=== PATIENT | female | born 1935 | race Caucasian/White ===

== ENCOUNTER → 2017-01-20 | Outpatient (CLI) | payer MEDICARE, BC ==
[2017-01-20 10:26] LABS: ABSOLUTE EOSINOPHILS # (AUTO) 0.1 10^3/uL (0.0-0.6); ABSOLUTE LYMPHOCYTES (AUTO) 1.2 10^3/uL (0.5-4.7); ABSOLUTE MONOCYTES (AUTO) 0.4 10^3/uL (0.1-1.4); ABSOLUTE NEUT (AUTO) 3.8 10^3/uL (1.7-8.2); BASOPHILS % (AUTO) 0.6 % (0-2); HEMATOCRIT 36.1 % (36.0-47.0); HGB HCT DIFFERENCE -0.1; LYMPHOCYTES % (AUTO) 21.5 % (13-45); MEAN CORPUSCULAR HEMOGLOBIN 30.2 pg (27.0-33.4); MEAN CORPUSCULAR HGB CONC 33.3 g/dL (32.0-36.0); MEAN CORPUSCULAR VOLUME 91 fl (80-97); MONOCYTES % (AUTO) 6.6 % (3-13); RED BLOOD COUNT 3.99 10^6/uL (3.72-5.28); RED CELL DISTRIBUTION WIDTH 14.8 % (11.5-14.0); SEGMENTED NEUTROPHILS % (AUTO) 69.3 % (42-78); WHITE BLOOD COUNT 5.4 10^3/uL (4.0-10.5)
--- NOTE | 2017-01-20 11:16 | RADIOLOGY REPORT (SQ) ---
EXAM DESCRIPTION: CHEST PA/LATERAL COMPLETED DATE/TIME: 01/20/2017 9:59 am REASON FOR STUDY: ACUTE BRONCHITIS, UNSPECIFIED COMPARISON: Chest films 07/16/2013, 07/18/2013, 09/16/2013, 02/04/2015 EXAM PARAMETERS: NUMBER OF VIEWS: two views TECHNIQUE: Digital Frontal and Lateral radiographic views of the chest acquired. RADIATION DOSE: NA LIMITATIONS: none FINDINGS: LUNGS AND PLEURA: No opacities, masses or pneumothorax. No pleural effusion. MEDIASTINUM AND HILAR STRUCTURES: No masses or contour abnormalities. HEART AND VASCULAR STRUCTURES: Stable marked cardiomegaly BONES: Osteoporotic. No thoracic compression HARDWARE: Left-sided dual lead pacemaker OTHER: No other significant finding. IMPRESSION: Stable cardiomegaly. No acute infiltrate TECHNICAL DOCUMENTATION: JOB ID: [id number] [employer]- All Rights Reserved
== END ==
LOC: OD 09:25
PROVIDERS: ATTEND Internal Medicine
DX: J20.9 Acute bronchitis, unspecified (principal)
CPT/HCPCS: 36415; 71020; 85025

== ENCOUNTER 2017-07-28 18:26 | Inpatient (IN) | payer MEDICARE, BC ==
[2017-07-28] MEDS ORDERED: IPRATROPIUM BROMIDE 0.02% NEB 0.5 MG/2.5 ML AMPUL NEB ONE (19:16)
[2017-07-28] MEDS ORDERED: ALBUTEROL SULFATE 0.083% NEB 2.5 MG/3 ML AMPUL NEB ONE (19:16)
[2017-07-28] MEDS ORDERED: ALBUTEROL SULFATE 0.042% NEB (1.25 MG/3 ML) AMPUL NEB ONE (19:16)
--- NOTE | 2017-07-28 19:24 | ER Document Report ---
ED General - General Chief Complaint: Cough Stated Complaint: CONGESTED, BLOOD IN MUCUS Time Seen by Provider: 07/28/17 18:58 Mode of Arrival: Ambulatory Information source: Patient, Relative Notes: 82-year-old female with a history of congestive heart failure, atrial fibrillation, diabetes presents with complaint of cough and shortness of breath. Patient states cough started 6 days prior to arrival. She states initially it was dry, intermittent but has become worse and today she coughed up blood-tinged sputum.Upon arrival patient was found to be hypoxic. She denies any home O2 use. She denies any smoking history.She denies any recent hospitalizations. She does admit to chills, decreased p.o. intake, weakness. TRAVEL OUTSIDE OF THE [place] IN LAST 30 DAYS: No - HPI Onset: Last week Onset/Duration: Gradual Quality of pain: No pain Severity: None Pain Level: Denies Associated symptoms: Chills, Productive cough, Shortness of breath, Weakness. denies: Chest pain, Hurts to breath, Leg swelling Exacerbated by: Walking, Deep breathing Relieved by: Denies Similar symptoms previously: Yes - 1 year prior to arrival with diagnosis of pneumonia Recently seen / treated by doctor: No - Related Data Allergies/Adverse Reactions: pregabalin [From Lyrica] Allergy (Verified 07/28/17 18:30) Past Medical History - General Information source: Patient, Relative - Social History Smoking Status: Never Smoker Frequency of alcohol use: None Drug Abuse: None Lives with: Spouse/Significant other Family History: Reviewed & Not Pertinent Patient has suicidal ideation: No - Past Medical History Cardiac Medical History: Reports: Hx Congestive Heart Failure - DX SEVEN YEARS AGO, Hx Hypercholesterolemia - DX TEN YEARS AGO, Hx Hypertension - DX TEN YEARS AGO Pulmonary Medical History: Reports: Hx Bronchitis - A MONTH AGO, Hx COPD - DX TEN YEARS AGO, Hx Pneumonia - JULY 2013, Hx Sleep Apnea Denies: Hx Tuberculosis Endocrine Medical History: Reports: Hx Diabetes Mellitus Type 2 - DX TEN YEARS AGO Musculoskeltal Medical History: Reports Hx Arthritis Psychiatric Medical History: Reports: Hx Anxiety - DX MORE THAN 10 YEARS Denies: Hx Depression Past Surgical History: Reports: Hx Hysterectomy, Hx Pacemaker. Denies: Hx Adenoidectomy - Immunizations Hx Diphtheria, Pertussis, Tetanus Vaccination: Yes Hx Pneumococcal Vaccination: 05/16/09 Review of Systems - Review of Systems Constitutional: See HPI, Chills, Malaise EENT: Nose congestion, Sinus pressure Cardiovascular: Dyspnea. denies: Chest pain, Palpitations, Dizziness Respiratory: Cough, Short of breath, Sputum, Wheezing Gastrointestinal: No symptoms reported Genitourinary: Dysuria Physical Exam - Vital signs Vitals: Temp Pulse BP Pulse Ox 97.7 F 71 144/56 H 89 L 07/28/17 18:34 07/28/17 18:34 07/28/17 18:34 07/28/17 18:34 Interpretation: Hypoxic - General General appearance: Appears well, Alert In distress: None - HEENT Head: Normocephalic, Atraumatic Eyes: Normal Conjunctiva: Normal Extraocular movements intact: Yes Pupils: PERRL Mucous membranes: Dry Pharynx: Normal Neck: Normal. No: Carotid bruit - Respiratory Respiratory status: No respiratory distress Chest status: Nontender Breath sounds: Normal, Productive cough, Rhonchi, Wheezing Chest palpation: Normal - Cardiovascular Rhythm: Regular Heart sounds: Normal auscultation Murmur: No - Extremities General upper extremity: Normal inspection, Nontender, Normal color, Normal ROM , Normal temperature. No: Edema General lower extremity: Normal inspection, Nontender, Normal color, Normal ROM , Normal temperature, Normal weight bearing. No: Edema, Fallon's sign - Neurological Neuro grossly intact: Yes Cognition: Normal Orientation: AAOx4 [place] Coma Scale Eye Opening: Spontaneous [place]cia Coma Scale Verbal: Oriented [place] Coma Scale Motor: Obeys Commands [place] Coma Scale Total: 15 Speech: Normal Motor strength normal: LUE, RUE, LLE, RLE Sensory: Normal - Psychological Associated symptoms: Normal affect, Normal mood - Skin Skin Temperature: Warm Skin Moisture: Dry Skin Color: Normal Course - Re-evaluation Re-evalutation: 07/28/17 20:[address] Cruz. 82-year-old female with an extensive cardiac history including congestive heart failure and atrial fibrillation presents with complaint of 1 week of fever, weakness and cough as well as associated shortness of breath. Patient became concerned when she coughed up some blood-tinged sputum earlier today.She denies any chest pain, abdominal pain. She does admit to poor p.o. intake. Upon arrival vitals were reviewed and patient was found to be hypoxic at 89%. Patient does not appear toxic but she does appear mildly dehydrated. Lung exam is significant for diffuse wheezing and rhonchi. She has no accessory muscle use and is not in any respiratory distress but requires 2 L of oxygen to maintain a saturation of 92-93%. Patient has had no recent hospital admissions and was started on Rocephin and azithromycin in the emergency department. Lasix IV was also administered during her ED course. Curb 65 score is 2. Because of patient's extensive cardiac history and new oxygen requirement I believe admission is in the best interest of the patient. I did discuss admission with the family and the patient who is agreeable. Laboratory 07/28/17 07/28/17 07/28/17 19:12 19:12 19:12 WBC 6.2 RBC 4.31 Hgb 12.7 Hct 38.9 MCV 90 MCH 29.6 MCHC 32.8 RDW 15.3 H Plt Count 133 L Seg Neutrophils % 81.7 H Lymphocytes % 10.8 L Monocytes % 7.4 Eosinophils % 0.0 Basophils % 0.1 Absolute Neutrophils 5.1 Absolute Lymphocytes 0.7 Absolute Monocytes 0.5 Absolute Eosinophils 0.0 Absolute Basophils 0.0 PT 17.0 H INR 1.30 VBG pH VBG pCO2 VBG HCO3 VBG Base Excess Sodium 140.8 Potassium 4.2 Chloride 103 Carbon Dioxide 26 Anion Gap 12 BUN 24 H Creatinine 1.00 Est GFR ( Amer) > 60 Est GFR (Non-Af Amer) 53 L Glucose 140 H Lactic Acid Calcium 9.0 Total Bilirubin 0.6 Direct Bilirubin 0.5 H Neonat Total Bilirubin Not Reportable Neonat Direct Bilirubin Not Reportable Neonat Indirect Bili Not Reportable AST 75 H ALT 56 H Alkaline Phosphatase 77 Creatine Kinase 750 H CK-MB (CK-2) Troponin I NT-Pro-B Natriuret Pep Total Protein 6.6 Albumin 3.9 07/28/17 07/28/17 07/28/17 19:12 19:12 19:12 WBC RBC Hgb Hct MCV MCH MCHC RDW Plt Count Seg Neutrophils % Lymphocytes % Monocytes % Eosinophils % Basophils % Absolute Neutrophils Absolute Lymphocytes Absolute Monocytes Absolute Eosinophils Absolute Basophils PT INR VBG pH 7.38 VBG pCO2 48.0 VBG HCO3 27.7 VBG Base Excess 1.9 Sodium Potassium Chloride Carbon Dioxide Anion Gap BUN Creatinine Est GFR ( Amer) Est GFR (Non-Af Amer) Glucose Lactic Acid Cancelled Calcium Total Bilirubin Direct Bilirubin Neonat Total Bilirubin Neonat Direct Bilirubin Neonat Indirect Bili AST ALT Alkaline Phosphatase Creatine Kinase CK-MB (CK-2) 7.50 H Troponin I 0.049 NT-Pro-B Natriuret Pep 2500 H Total Protein Albumin 07/28/17 19:12 WBC RBC Hgb Hct MCV MCH MCHC RDW Plt Count Seg Neutrophils % Lymphocytes % Monocytes % Eosinophils % Basophils % Absolute Neutrophils Absolute Lymphocytes Absolute Monocytes Absolute Eosinophils Absolute Basophils PT INR VBG pH VBG pCO2 VBG HCO3 VBG Base Excess Sodium Potassium Chloride Carbon Dioxide Anion Gap BUN Creatinine Est GFR ( Amer) Est GFR (Non-Af Amer) Glucose Lactic Acid 2.2 H Calcium Total Bilirubin Direct Bilirubin Neonat Total Bilirubin Neonat Direct Bilirubin Neonat Indirect Bili AST ALT Alkaline Phosphatase Creatine Kinase CK-MB (CK-2) Troponin I NT-Pro-B Natriuret Pep Total Protein Albumin Chest X-Ray 07/28/17 19:16 IMPRESSION: CARDIAC ENLARGEMENT. VASCULAR CONGESTION WITH PATCHY MULTIFOCAL AIRSPACE DISEASE COULD REPRESENT ASYMMETRIC PULMONARY EDEMA OR SUPERIMPOSED PNEUMONIA. 07/28/17 22:19 - Vital Signs Vital signs: Temp Pulse Resp BP Pulse Ox 97.7 F 71 18 109/84 93 07/28/17 18:34 07/28/17 18:34 07/28/17 21:17 07/28/17 20:14 07/28/17 21:17 - Laboratory Result Diagrams: 07/28/17 19:12 07/28/17 19:12 Laboratory results interpreted by me: 07/28/17 07/28/17 07/28/17 19:12 19:12 19:12 RDW 15.3 H Plt Count 133 L Seg Neutrophils % 81.7 H Lymphocytes % 10.8 L PT 17.0 H BUN 24 H Est GFR (Non-Af Amer) 53 L Glucose 140 H Lactic Acid Magnesium Direct Bilirubin 0.5 H AST 75 H ALT 56 H Creatine Kinase 750 H CK-MB (CK-2) NT-Pro-B Natriuret Pep 07/28/17 07/28/17 07/28/17 19:12 19:12 19:12 RDW Plt Count Seg Neutrophils % Lymphocytes % PT BUN Est GFR (Non-Af Amer) Glucose Lactic Acid 2.2 H Magnesium 2.4 H Direct Bilirubin AST ALT Creatine Kinase CK-MB (CK-2) 7.50 H NT-Pro-B Natriuret Pep 2500 H
[2017-07-28 19:28] LABS: VENOUS BLOOD BASE EXCESS 1.9 mmol/L; VENOUS BLOOD HCO3 27.7 mmol/L (20-32); VENOUS BLOOD PH 7.38 (7.30-7.42)
[2017-07-28 19:32] LABS: ABSOLUTE LYMPHOCYTES (AUTO) 0.7 10^3/uL (0.5-4.7); ABSOLUTE MONOCYTES (AUTO) 0.5 10^3/uL (0.1-1.4); ABSOLUTE NEUT (AUTO) 5.1 10^3/uL (1.7-8.2); BASOPHILS % (AUTO) 0.1 % (0-2); HEMATOCRIT 38.9 % (36.0-47.0); HEMOGLOBIN 12.7 g/dL (12.0-15.5); LYMPHOCYTES % (AUTO) 10.8 % (13-45); MEAN CORPUSCULAR HEMOGLOBIN 29.6 pg (27.0-33.4); MEAN CORPUSCULAR HGB CONC 32.8 g/dL (32.0-36.0); MEAN CORPUSCULAR VOLUME 90 fl (80-97); MONOCYTES % (AUTO) 7.4 % (3-13); PLATELET COUNT 133 10^3/uL (150-450); RED BLOOD COUNT 4.31 10^6/uL (3.72-5.28); RED CELL DISTRIBUTION WIDTH 15.3 % (11.5-14.0); SEGMENTED NEUTROPHILS % (AUTO) 81.7 % (42-78); TOTAL CELLS COUNTED % (AUTO) 100 %; WHITE BLOOD COUNT 6.2 10^3/uL (4.0-10.5)
[2017-07-28 19:41] LABS: ALANINE AMINOTRANSFERASE 56 U/L (9-52); ALBUMIN 3.9 g/dL (3.5-5.0); ALKALINE PHOSPHATASE 77 U/L (38-126); ANION GAP 12 (5-19); ASPARTATE AMINO TRANSFERASE 75 U/L (14-36); BILIRUBIN,DIRECT 0.5 mg/dL (0.0-0.4); BILIRUBIN,TOTAL 0.6 mg/dL (0.2-1.3); BLOOD UREA NITROGEN 24 mg/dL (7-20); CARBON DIOXIDE 26 mmol/L (22-30); CHLORIDE 103 mmol/L (98-107); CREATINE KINASE 750 U/L (30-135); GLUCOSE 140 mg/dL (75-110); POTASSIUM 4.2 mmol/L (3.6-5.0); SODIUM 140.8 mmol/L (137-145); TOTAL PROTEIN 6.6 g/dL (6.3-8.2)
[2017-07-28] MEDS ORDERED: NORMAL SALINE 1000 ML 1,000 ML IV ONE (19:45)
[2017-07-28 19:53] LABS: CREATINE KINASE MB 7.5 ng/mL (<4.55)
[2017-07-28 19:54] LABS: TROPONIN I 0.049 ng/mL
[2017-07-28] MEDS ORDERED: CEFTRIAXONE INJ 1000 MG VIAL IV ONE (20:26)
[2017-07-28] MEDS ORDERED: AZITHROMYCIN 250 MG TABLET PO ONE (20:26)
--- NOTE | 2017-07-28 20:27 | RADIOLOGY REPORT (SQ) ---
EXAM DESCRIPTION: CHEST PA/LAT COMPLETED DATE/TIME: 07/28/2017 8:12 pm REASON FOR STUDY: cough hypoxic COMPARISON: 02/04/2015 NUMBER OF VIEWS: Two views. TECHNIQUE: Frontal and lateral radiographic views of the chest acquired. LIMITATIONS: None. FINDINGS: LUNGS AND PLEURA: Patchy multifocal airspace disease most notably involving the left upper lobe and right lower lobe. MEDIASTINUM AND HILAR STRUCTURES: No masses or contour abnormality. HEART AND VASCULAR STRUCTURES: Cardiac enlargement. Vascular congestion. BONES: No acute findings. HARDWARE: Stable peer OTHER: No other significant finding. IMPRESSION: CARDIAC ENLARGEMENT. VASCULAR CONGESTION WITH PATCHY MULTIFOCAL AIRSPACE DISEASE COULD REPRESENT ASYMMETRIC PULMONARY EDEMA OR SUPERIMPOSED PNEUMONIA. TECHNICAL DOCUMENTATION: JOB ID: [id number] [employer]- All Rights Reserved Reading location - IP/workstation name: [email or web address]
[2017-07-28] MEDS ORDERED: FUROSEMIDE INJ/PF 20 MG/2 ML SDV IV ONE (20:33)
[2017-07-28] MEDS ORDERED: ACETAMINOPHEN 325 MG TABLET PO PRN (20:50)
[2017-07-28] MEDS ORDERED: MAGNESIUM HYDROXIDE SUSP 30 ML UDCUP PO PRN (20:50)
[2017-07-28] MEDS ORDERED: DEXTROSE 50%-WATER 25 GM/50 ML DISP.SYRIN IV PRN ×2 (20:54)
[2017-07-28] MEDS ORDERED: GLUCAGON,HUMAN RECOMB 1 MG INJ IM PRN (20:54)
[2017-07-28] MEDS ORDERED: DEXTROSE 40% GEL 15 GM TUBE PO PRN ×2 (20:54)
[2017-07-28] MEDS ORDERED: HEPARIN SOD (PORCINE) 5,000 UNIT/ML 1 ML SYRINGE SUBCUT SCH (22:00)
[2017-07-28 22:19] LABS: APPEARANCE,URINE CLEAR; BILIRUBIN,URINE NEGATIVE (NEGATIVE); COLOR,URINE STRAW; GLUCOSE, URINE NEGATIVE (NEGATIVE); KETONES,URINE NEGATIVE (NEGATIVE); LEUKOCYTE ESTERASE,URINE NEGATIVE (NEGATIVE); NITRITE,URINE NEGATIVE (NEGATIVE); PROTEIN,URINE NEGATIVE (NEGATIVE); URINE SPECIFIC GRAVITY 1.006; UROBILINOGEN,URINE NEGATIVE mg/dL (<2.0)
[2017-07-28] MEDS: CARVEDILOL 6.25 MG TABLET PO SCH (22:59)
[2017-07-28] MEDS ORDERED: LACTULOSE SYRUP 20 GM/30 ML UDCUP PO ONE (23:52)
[2017-07-28] MEDS ORDERED: CHLORPHENIRAMINE MALEATE 4 MG TABLET PO ONE (23:52)
[2017-07-29 00:23] LABS: CREATINE KINASE MB 9.52 ng/mL (<4.55); TROPONIN I 0.045 ng/mL
[2017-07-29] MEDS ORDERED: FLUTICASONE NASAL SPRAY 50 MCG/SPRY 120 SPRAY/16 GM ONE (01:11)
[2017-07-29] MEDS ORDERED: CHLORPHENIRAMINE MALEATE 4 MG TABLET ONE (01:11)
[2017-07-29] MEDS: IPRATROPIUM BROMIDE 0.02% NEB 0.5 MG/2.5 ML AMPUL NEB SCH ×5 (01:35→21:21)
[2017-07-29] MEDS: LEVALBUTEROL HCL NEB 1.25 MG/3 ML AMPUL NEB SCH ×5 (01:36→21:21)
[2017-07-29] MEDS ORDERED: FLUTICASONE NASAL SPRAY 50 MCG/SPRY 120 SPRAY/16 GM NASL ONE (01:45)
[2017-07-29 05:58] LABS: ABSOLUTE LYMPHOCYTES (AUTO) 1.8 10^3/uL (0.5-4.7); ABSOLUTE MONOCYTES (AUTO) 0.8 10^3/uL (0.1-1.4); ABSOLUTE NEUT (AUTO) 6.8 10^3/uL (1.7-8.2); BASOPHILS % (AUTO) 0.3 % (0-2); EOSINOPHILS % (AUTO) 0.1 % (0-6); HEMATOCRIT 38.8 % (36.0-47.0); HEMOGLOBIN 12.8 g/dL (12.0-15.5); LYMPHOCYTES % (AUTO) 19.2 % (13-45); MEAN CORPUSCULAR HEMOGLOBIN 29.7 pg (27.0-33.4); MEAN CORPUSCULAR HGB CONC 32.9 g/dL (32.0-36.0); MEAN CORPUSCULAR VOLUME 90 fl (80-97); MONOCYTES % (AUTO) 8.8 % (3-13); PLATELET COUNT 147 10^3/uL (150-450); RED BLOOD COUNT 4.31 10^6/uL (3.72-5.28); SEGMENTED NEUTROPHILS % (AUTO) 71.6 % (42-78); TOTAL CELLS COUNTED % (AUTO) 100 %; WHITE BLOOD COUNT 9.5 10^3/uL (4.0-10.5)
[2017-07-29 06:13] LABS: ANION GAP 12 (5-19); BLOOD UREA NITROGEN 26 mg/dL (7-20); CARBON DIOXIDE 29 mmol/L (22-30); CHLORIDE 105 mmol/L (98-107); CHOLESTEROL 139.57 mg/dL (0-200); GLUCOSE 110 mg/dL (75-110); POTASSIUM 4.2 mmol/L (3.6-5.0); SODIUM 146.3 mmol/L (137-145); TRIGLYCERIDES 101 mg/dL (<150)
[2017-07-29 06:24] LABS: DIRECT LDL 67 mg/dL (<100)
--- NOTE | 2017-07-29 06:24 | PDOC H&P ---
History of Present Illness Admission Date/PCP: 07/28/17 21:07 Patient complains of: Shortness of breath and cough History of Present Illness: NYLA ALMEIDA is a 82 year old female with a past medical history of congestive heart failure, obstructive sleep apnea, status post pacemaker placement, COPD, coronary artery disease, dyslipidemia, diabetes and obesity. She presents with 1 week of subjective fever with productive cough of blood- tinged yellow sputum, rhinorrhea, hoarse voice and orthopnea. In the emergency room she is found to have hypoxia, lower extremity edema, BNP of 2700 and a chest x-ray with multilobar pneumonia versus atypical pulmonary edema. She started on empiric antibiotics, Lasix and referred to the hospitalist for admission. Patient denies chest pain nausea vomiting diaphoresis. Patient further denies recent antibiotics or change in medications. Past Medical History Cardiac Medical History: Reports: Congestive Heart Failure - DX SEVEN YEARS AGO , Hyperlipidema - DX TEN YEARS AGO, Hypertension - DX TEN YEARS AGO Pulmonary Medical History: Reports: Bronchitis - A MONTH AGO, Chronic Obstructive Pulmonary Disease (COPD) - DX TEN YEARS AGO, Pneumonia - JULY 2013 , Sleep Apnea Denies: Tuberculosis Endocrine Medical History: Reports: Diabetes Mellitus Type 2 - DX TEN YEARS AGO , Obesity Musculoskeltal Medical History: Reports: Arthritis Psychiatric Medical History: Denies: Depression Past Surgical History Past Surgical History: Reports: Hysterectomy, Pacemaker Denies: Adenoidectomy Social History Information Source: Patient, Relative Lives with: Spouse/Significant other Smoking Status: Never Smoker Frequency of Alcohol Use: None Hx Recreational Drug Use: No Drugs: None Hx Prescription Drug Abuse: No - Advance Directive Resuscitation Status: Full Code Family History Family History: Hypertension Parental Family History Reviewed: Yes Children Family History Reviewed: Yes Sibling(s) Family History Reviewed.: Yes Medication/Allergy Home Medications: Albuterol Sulfate [Albuterol Sulfate 2.5mg/3 mL] 2.5 mg NEB Q6 07/28/17 Alprazolam [Xanax 0.25 mg Tablet] 0.25 mg PO Q12HP PRN 07/28/17 Apixaban [Eliquis] 5 mg PO Q12 07/28/17 Carvedilol [Coreg 6.25 mg Tablet] 6.25 mg PO Q12 07/28/17 Fluticasone/Salmeterol [Advair 250-50 Diskus 14 Dose/Diskus] 1 puff IH Q12 07/28 Furosemide [Lasix 40 mg Tablet] 40 mg PO BID 07/28/17 Losartan Potassium [Cozaar 100 mg Tablet] 100 mg PO DAILY 07/28/17 Metformin HCl [Metformin HCl ER] 500 mg PO QHS 07/28/17 Umeclidinium Capron [Incruse Ellipta] 1 puff IH DAILY 07/28/17 Allergies/Adverse Reactions: pregabalin [From Lyrica] Allergy (Verified 07/28/17 18:30) Review of Systems Constitutional: PRESENT: as per HPI, chills, fatigue, fever(s), weakness, weight gain Eyes: ABSENT: visual disturbances Ears: ABSENT: hearing changes Nose, Mouth, and Throat: PRESENT: as per HPI Cardiovascular: PRESENT: as per HPI, dyspnea on exertion, edema, orthropnea Respiratory: PRESENT: as per HPI, cough, dyspnea, sputum. ABSENT: hemoptysis Gastrointestinal: PRESENT: constipation. ABSENT: abdominal pain, diarrhea, hematemesis, hematochezia, nausea, vomiting Genitourinary: ABSENT: dysuria, hematuria Musculoskeletal: ABSENT: joint swelling Integumentary: ABSENT: rash, wounds Neurological: ABSENT: abnormal gait, abnormal speech, confusion, dizziness, focal weakness, syncope Psychiatric: ABSENT: anxiety, depression, homidical ideation, suicidal ideation Endocrine: ABSENT: cold intolerance, heat intolerance, polydipsia, polyuria Hematologic/Lymphatic: ABSENT: easy bleeding, easy bruising Physical Exam Vital Signs: Temp Pulse Resp BP Pulse Ox 97.7 F 70 20 116/41 L 95 07/29/17 00:22 07/29/17 02:00 07/29/17 01:35 07/29/17 00:22 07/29/17 01:35 Intake & Output 07/27/17 07/28/17 07/29/17 11:59 11:59 11:59 Weight 109.9 kg General appearance: PRESENT: mild distress, morbidly obese Head exam: PRESENT: atraumatic, normocephalic Eye exam: PRESENT: conjunctiva pink, EOMI, PERRLA. ABSENT: scleral icterus Ear exam: PRESENT: normal external ear exam Mouth exam: PRESENT: moist, tongue midline Neck exam: ABSENT: carotid bruit, JVD, lymphadenopathy, thyromegaly Respiratory exam: PRESENT: accessory muscle use, crackles, prolonged expiratory phas, rales, retraction, tachypnea, wheezes. ABSENT: rhonchi Cardiovascular exam: PRESENT: RRR. ABSENT: diastolic murmur, rubs, systolic murmur Pulses: PRESENT: normal carotid pulses Vascular exam: PRESENT: normal capillary refill GI/Abdominal exam: PRESENT: normal bowel sounds, soft. ABSENT: distended, guarding, mass, organolmegaly, rebound, tenderness Rectal exam: PRESENT: deferred Extremities exam: PRESENT: full ROM, +1 edema. ABSENT: calf tenderness, clubbing, pedal edema Neurological exam: PRESENT: alert, awake, oriented to person, oriented to place , oriented to time, oriented to situation, CN II-XII grossly intact. ABSENT: motor sensory deficit Psychiatric exam: PRESENT: appropriate affect, normal mood. ABSENT: homicidal ideation, suicidal ideation Skin exam: PRESENT: dry, intact, warm. ABSENT: cyanosis, rash Results Laboratory Results: 07/29/17 05:47 07/28/17 07/28/17 07/29/17 21:54 23:49 05:47 WBC 9.5 RBC 4.31 Hgb 12.8 Hct 38.8 MCV 90 MCH 29.7 MCHC 32.9 RDW 15.0 H Plt Count 147 L Seg Neutrophils % 71.6 Lymphocytes % 19.2 Monocytes % 8.8 Eosinophils % 0.1 Basophils % 0.3 Absolute Neutrophils 6.8 Absolute Lymphocytes 1.8 Absolute Monocytes 0.8 Absolute Eosinophils 0.0 Absolute Basophils 0.0 Lactic Acid 1.3 Urine Color STRAW Urine Appearance CLEAR Urine pH 6.0 Ur Specific [place] 1.006 Urine Protein NEGATIVE Urine Glucose (UA) NEGATIVE Urine Ketones NEGATIVE Urine Blood SMALL H Urine Nitrite NEGATIVE Ur Leukocyte Esterase NEGATIVE Urine WBC (Auto) 0 Urine RBC (Auto) 0 07/28/17 07/28/17 23:49 23:49 Creatine Kinase 742 H CK-MB (CK-2) 9.52 H Troponin I 0.045 Impressions: Chest X-Ray 07/28/17 19:16 IMPRESSION: CARDIAC ENLARGEMENT. VASCULAR CONGESTION WITH PATCHY MULTIFOCAL AIRSPACE DISEASE COULD REPRESENT ASYMMETRIC PULMONARY EDEMA OR SUPERIMPOSED PNEUMONIA. Assessment & Plan - Diagnosis (1) Acute exacerbation of congestive heart failure Is this a current diagnosis for this admission?: Yes Plan: Telemetry floor, CHF care set, education gentle diuresis and BiPAP follow-up a.m. chemistry (2) Pneumonia Is this a current diagnosis for this admission?: Yes Plan: Likely trigger for CHF exacerbation, empiric antibiotic, Flonase, chlorpheniramine, Xopenex and Atrovent. Follow-up blood culture and CBC (3) COPD exacerbation Is this a current diagnosis for this admission?: Yes Plan: Flutter valve, Xopenex and Atrovent. (4) Diabetes Is this a current diagnosis for this admission?: Yes Plan: Home regiment with Humalog sliding scale coverage (5) Rhabdomyolysis Is this a current diagnosis for this admission?: Yes Plan: Secondary to sedentary state, avoid rapid diuresis follow-up total CK and chemistry - Time Time Spent: 50 to 70 Minutes - Inpatient Certification Medical Necessity: Need Close Monitoring Due to Risk of Patient Decompensation
[2017-07-29 06:25] LABS: CREATINE KINASE MB 9.17 ng/mL (<4.55); TROPONIN I 0.064 ng/mL
--- NOTE | 2017-07-29 08:07 | EKG REPORT ---
SEVERITY:- ABNORMAL ECG - VENTRICULAR-PACED COMPLEXES : Confirmed by: Fabrice Perry MD 29-Jul-2017 08:06:48
[2017-07-29] MEDS: APIXABAN 5 MG TABLET PO SCH ×2 (09:35→21:10)
[2017-07-29] MEDS: CARVEDILOL 6.25 MG TABLET PO SCH ×2 (09:35→21:10)
[2017-07-29] MEDS: DOCUSATE SODIUM 100 MG CAPSULE PO SCH (09:37)
[2017-07-29] MEDS: POTASSIUM CHLORIDE 10 MEQ TABLET.SA PO SCH (09:37)
[2017-07-29] MEDS: FLUTICASONE NASAL SPRAY 50 MCG/SPRY 120 SPRAY/16 GM NASL SCH ×2 (09:38→21:11)
[2017-07-29] MEDS ORDERED: LEVALBUTEROL HCL NEB 0.63 MG/3 ML AMPUL NEB PRN (09:41)
[2017-07-29] MEDS ORDERED: FUROSEMIDE INJ/PF 40 MG/4 ML SDV IV SCH (10:00)
[2017-07-29] MEDS: METHYLPREDNISOLONE INJ 40 MG/1 ML SDV IV SCH ×2 (11:44→18:42)
[2017-07-29 12:34] LABS: CREATINE KINASE MB 7.24 ng/mL (<4.55); TROPONIN I 0.053 ng/mL
--- NOTE | 2017-07-29 13:05 | EKG REPORT ---
SEVERITY:- ABNORMAL ECG - VENTRICULAR-PACED COMPLEXES FIRST DEGREE AV BLOCK : Confirmed by: Fabrice Perry MD 29-Jul-2017 13:05:11
[2017-07-29] MEDS ORDERED: CEFTRIAXONE 1 GM/D5W RTU 1 GM/50 ML RTUPB IV SCH (18:00)
[2017-07-29] MEDS: FUROSEMIDE INJ/PF 40 MG/4 ML SDV IV SCH ×2 (18:41→21:10)
[2017-07-29] MEDS: CEFTRIAXONE SODIUM 1,000 MG in NORMAL SALINE 100 ML IV SCH (18:42)
[2017-07-29] MEDS: AZITHROMYCIN 500 MG in DEXTROSE 5%-WATER 250 ML IV SCH (18:42)
--- NOTE | 2017-07-29 19:33 | XCELERA REPORT ---
[address] [address] Transthoracic Echocardiogram Report Name: NYLA ALMEIDA Age: 82 yrs Gender: Female : 1935 Patient Status: Inpatient Patient Location: [address] [place] [address] Study Date: 07/29/2017 09:15 AM Height: 67 in Weight: 249 lb BSA: 2.2 m2 Procedure: A complete two-dimensional transthoracic echocardiogram was performed (2D, M-mode, spectral and color flow Doppler). The study was technically difficult with many images being suboptimal in quality. Reason For Study: overload Ordering Physician: KATLYN CARRASCO Performed By: Becky Moon Interpretation Summary The study was technically difficult with many images being suboptimal in quality. Left ventricular systolic function is mildly reduced. The Ejection Fraction estimate is 45-50% Consider additional methods to assess LVEF such as MUGA scan, CTA heart, cardiac MRI, NICOLE, etc. if clinically indicated. There is mild to moderate concentric left ventricular hypertrophy. The left ventricle is grossly normal size. LV diastolic function could not be adequately assessed. Regional wall motion abnormalities cannot be excluded due to limited visualization. The left atrium is moderately dilated. The right atrium is mildly dilated. There is a mild amount of mitral regurgitation There is no mitral valve stenosis. No aortic regurgitation is present. There is no aortic valve stenosis There is a mild amount of tricuspid regurgitation There is mild to moderate pulmonary hypertension by echo Right ventricular systolic pressure is estimated to be elevated at 40- 50mmHg. The aortic root is not well visualized. The inferior vena cava appeared normal and decreased > 50% with respiration (RAP 5-10 mmHg) Minimal pericardial effusion. MMode/2D Measurements & Calculations RVDd: 3.6 cm LVIDd: 4.5 cm FS: 23.6 % Ao root diam: 2.5 cm IVSd: 1.4 cm LVIDs: 3.4 cm EDV(Teich): 92.1 ml LVPWd: 1.4 cm ESV(Teich): 48.5 ml Ao root area: 5.0 cm2 EF(Teich): 47.4 % Doppler Measurements & Calculations MV E max michele: MV dec slope: Ao V2 max: LV V1 max P.1 cm/sec 158.8 cm/sec 3.1 mmHg MV A max michele: 581.1 cm/sec2 Ao max PG: LV V1 max: 57.5 cm/sec MV dec time: 10.1 mmHg 88.6 cm/sec MV E/A: 2.3 0.22 sec PA V2 max: TR max michele: 93.7 cm/sec 298.1 cm/sec PA max P.5 mmHg TR max P.5 mmHg Left Ventricle The left ventricle is grossly normal size. There is mild to moderate concentric left ventricular hypertrophy. Left ventricular systolic function is mildly reduced. The Ejection Fraction estimate is 45-50%. Consider additional methods to assess LVEF such as MUGA scan, CTA heart, cardiac MRI, NICOLE, etc. if clinically indicated. LV diastolic function could not be adequately assessed. Regional wall motion abnormalities cannot be excluded due to limited visualization. Right Ventricle The right ventricle is mildly dilated. There is normal right ventricular wall thickness. The right ventricular systolic function is normal. Atria The right atrium is mildly dilated. The left atrium is moderately dilated. Interarterial septum not well visualized and not well dopplered. Cannot comment on ASD/PFO presence. Mitral Valve There is mild mitral leaflet calcification. There is mild to moderate mitral annular calcification. There is no mitral valve stenosis. There is a mild amount of mitral regurgitation. Aortic Valve The aortic valve is not well visualized secondary to technical limitations. There is no aortic valve stenosis. No aortic regurgitation is present. Tricuspid Valve The tricuspid valve is not well visualized, but is grossly normal. There is no tricuspid stenosis. There is a mild amount of tricuspid regurgitation. There is mild to moderate pulmonary hypertension by echo. Right ventricular systolic pressure is estimated to be elevated at 40-50mmHg. Pulmonic Valve The pulmonic valve is not well visualized. Great Vessels The aortic root is not well visualized. The inferior vena cava appeared normal and decreased > 50% with respiration (RAP 5-10 mmHg). Effusions Minimal pericardial effusion. : KATLYN CARRASCO > Dung Tejada
--- NOTE | 2017-07-29 22:42 | PDOC PROGRESS REPORT ---
Subjective Progress Note for:: 07/29/17 Subjective:: 82 year old female with a past medical history of congestive heart failure, atrial fibrillation, obstructive sleep apnea, status post pacemaker placement, COPD, coronary artery disease, dyslipidemia, diabetes and obesity. Patient described having fever, and a productive cough with yellow sputum. She was noted to have an elevated BNP, CXR with edema. She was started on antibiotics for an early PNA vs. Bronchitis. Started on Lasix for exacerbation of her CHF. She was wheezing on exam, IV steroids and neb treatments were given. Reason For Visit: HEART FAILURE, PNA Physical Exam Vital Signs: Temp Pulse Resp BP Pulse Ox 98.3 F 70 18 137/69 H 96 07/29/17 20:00 07/29/17 20:20 07/29/17 20:20 07/29/17 20:00 07/29/17 20:20 Intake & Output 07/28/17 07/29/17 07/30/17 06:59 06:59 06:59 Intake Total 0 620 Balance 0 620 Weight 109.9 kg General appearance: PRESENT: no acute distress. ABSENT: disheveled Head exam: PRESENT: atraumatic, normocephalic Eye exam: PRESENT: EOMI, PERRLA Ear exam: PRESENT: normal external ear exam Mouth exam: PRESENT: moist, neck supple Neck exam: ABSENT: tenderness, thyromegaly Respiratory exam: PRESENT: crackles, prolonged expiratory phas, wheezes. ABSENT : rhonchi Cardiovascular exam: PRESENT: RRR, +S1, +S2. ABSENT: diastolic murmur, systolic murmur Pulses: PRESENT: normal radial pulses, normal dorsalis pedis pul Vascular exam: PRESENT: normal capillary refill. ABSENT: pallor GI/Abdominal exam: PRESENT: normal bowel sounds, soft. ABSENT: mass, rigid Musculoskeletal exam: PRESENT: full ROM. ABSENT: normal inspection Neurological exam: PRESENT: alert, oriented to person, oriented to place, oriented to time, CN II-XII grossly intact Psychiatric exam: ABSENT: agitated, anxious, flat affect Focused psych exam: ABSENT: delusional, paranoid Skin exam: ABSENT: erythema, petechiae Results Laboratory Results: 07/29/17 05:47 07/29/17 05:47 07/28/17 07/29/17 07/29/17 23:49 05:47 05:47 WBC 9.5 RBC 4.31 Hgb 12.8 Hct 38.8 MCV 90 MCH 29.7 MCHC 32.9 RDW 15.0 H Plt Count 147 L Seg Neutrophils % 71.6 Lymphocytes % 19.2 Monocytes % 8.8 Eosinophils % 0.1 Basophils % 0.3 Absolute Neutrophils 6.8 Absolute Lymphocytes 1.8 Absolute Monocytes 0.8 Absolute Eosinophils 0.0 Absolute Basophils 0.0 Sodium 146.3 H Potassium 4.2 Chloride 105 Carbon Dioxide 29 Anion Gap 12 BUN 26 H Creatinine 0.98 Est GFR ( Amer) > 60 Est GFR (Non-Af Amer) 54 L Glucose 110 Lactic Acid 1.3 Calcium 9.0 Triglycerides 101 Cholesterol 139.57 LDL Cholesterol Direct 67 VLDL Cholesterol 20.0 HDL Cholesterol 55 07/28/17 07/28/17 07/29/17 23:49 23:49 05:47 Creatine Kinase 742 H 638 H CK-MB (CK-2) 9.52 H Troponin I 0.045 07/29/17 07/29/17 07/29/17 05:47 09:42 11:53 Creatine Kinase 535 H CK-MB (CK-2) 9.17 H Troponin I 0.064 0.052 07/29/17 11:53 Creatine Kinase CK-MB (CK-2) 7.24 H Troponin I 0.053 Impressions: Chest X-Ray 07/28/17 19:16 IMPRESSION: CARDIAC ENLARGEMENT. VASCULAR CONGESTION WITH PATCHY MULTIFOCAL AIRSPACE DISEASE COULD REPRESENT ASYMMETRIC PULMONARY EDEMA OR SUPERIMPOSED PNEUMONIA. Assessment & Plan - Plan Summary Plan Summary: 1. Acute on Chronic Systolic heart failure. TTE today shows: EF: 45-50% continue IV Lasix 40mg q8h, supportive O2 NC. BIPAP as needed. 2. Acute on Chronic Respiratory Failure with Hypoxia. on sheduled Xopenex/ipratropium. IV steroids, supplemental O2 BIPAP if needed. 3. Pneumonia vs. Bronchitis. Continue Ceftriaxone/Azithromycin continue Nebulized therapies 4. COPD exacerbation see #2 5. Atrial Fibrillation. continue coreg and Eliquis rate controled. 6. Diabetes Mellitus. continue SSI 7. Rhabdomyolysis. attempting gradual diuresis, monitor CK level
[2017-07-30] MEDS: LEVALBUTEROL HCL NEB 1.25 MG/3 ML AMPUL NEB SCH ×7 (00:04→23:53)
[2017-07-30] MEDS: IPRATROPIUM BROMIDE 0.02% NEB 0.5 MG/2.5 ML AMPUL NEB SCH ×7 (00:04→23:53)
[2017-07-30] MEDS: METHYLPREDNISOLONE INJ 40 MG/1 ML SDV IV SCH ×3 (01:51→17:18)
[2017-07-30] MEDS: FUROSEMIDE INJ/PF 40 MG/4 ML SDV IV SCH ×3 (05:14→23:25)
[2017-07-30 07:04] LABS: HEMATOCRIT 38.2 % (36.0-47.0); HEMOGLOBIN 12.8 g/dL (12.0-15.5); MEAN CORPUSCULAR HEMOGLOBIN 30.1 pg (27.0-33.4); MEAN CORPUSCULAR HGB CONC 33.5 g/dL (32.0-36.0); MEAN CORPUSCULAR VOLUME 90 fl (80-97); PLATELET COUNT 152 10^3/uL (150-450); RED BLOOD COUNT 4.25 10^6/uL (3.72-5.28); RED CELL DISTRIBUTION WIDTH 14.8 % (11.5-14.0); WHITE BLOOD COUNT 5.8 10^3/uL (4.0-10.5)
[2017-07-30 07:45] LABS: ALBUMIN 3.9 g/dL (3.5-5.0); ANION GAP 11 (5-19); BLOOD UREA NITROGEN 24 mg/dL (7-20); CALCIUM 8.7 mg/dL (8.4-10.2); CARBON DIOXIDE 34 mmol/L (22-30); CHLORIDE 100 mmol/L (98-107); CREATINE KINASE 279 U/L (30-135); GLUCOSE 148 mg/dL (75-110); PHOSPHORUS 4.7 mg/dL (2.5-4.5); POTASSIUM 4.2 mmol/L (3.6-5.0); SODIUM 144.9 mmol/L (137-145)
[2017-07-30] MEDS: DOCUSATE SODIUM 100 MG CAPSULE PO SCH (10:03)
[2017-07-30] MEDS: CARVEDILOL 6.25 MG TABLET PO SCH ×2 (10:03→23:25)
[2017-07-30] MEDS: POTASSIUM CHLORIDE 10 MEQ TABLET.SA PO SCH (10:03)
[2017-07-30] MEDS: FLUTICASONE NASAL SPRAY 50 MCG/SPRY 120 SPRAY/16 GM NASL SCH ×2 (10:04→23:26)
[2017-07-30] MEDS: APIXABAN 5 MG TABLET PO SCH ×2 (10:04→23:25)
[2017-07-30] MEDS: INSULIN LISPRO 100 UNIT/ML 3 ML VIAL SUBCUT PRN ×2 (12:27→17:18)
--- NOTE | 2017-07-30 13:54 | PROGRESS NOTE E ---
Progress Note NAME: NYLA ALMEIDA : 1935 AGE: 82Y DATE: ROOM: 531 SUBJECTIVE: The patient is an 82-year-old female who has a past medical history of COPD, congestive heart failure with ejection fraction of 30%. She was admitted with COPD exacerbation and congestive heart failure exacerbation. She was started on Lasix 40 mg IV every 8 hours, Solu-Medrol, and nebulizer and antibiotics. She was doing better today. OBJECTIVE: GENERAL: The patient is lying in bed, comfortable, not in distress. VITAL SIGNS: Temperature 97.3, heart rate 70, blood pressure is 128/89, saturation 96% on 2 L. HEENT: Normocephalic, atraumatic. Pupils are round and reactive to light and accommodation bilaterally. Extraocular movements intact. Ears: Tympanic membranes intact bilaterally. No discharge from the ears. No discharge from the nose. NECK: Supple. No increased JVD. No thyromegaly. No lymphadenopathy. CARDIOVASCULAR: Normal S1 and S2. Regular rate and rhythm. No murmur. No gallop. RESPIRATORY: Bilateral wheezing and crackles. ABDOMEN: Soft and nontender. MUSCULOSKELETAL: No edema. NEUROLOGIC: Awake, alert. SKIN: No rash. LABORATORY DATA: White blood count 5.8, hemoglobin 12. Creatinine is 0.9. ASSESSMENT: 1. Acute on chronic hypoxic respiratory failure secondary to COPD exacerbation and congestive heart failure, improved. 2. Acute on chronic systolic heart failure. EF is 45% to 50%, improved. 3. Pneumonia versus bronchitis. Continue antibiotics, nebulizers, and steroids for the patient. 4. Atrial fibrillation, rate controlled. 5. Diabetes. Continue sliding-scale. PLAN: Continue the Lasix 40 mg IV every 8 hours. Continue Solu-Medrol and continue Eliquis , and ceftriaxone . MEDICAL NECESSITY: Needs antibiotics and IV Lasix. DISPOSITION: Probably home in 2 days. DICTATING PHYSICIAN: PATRICIO ARRIOLA M.D. [id number] PHY#: [id number] ID: [id number] JOB#: [id number] ACCT: [id number] cc: > MTDD
[2017-07-30] MEDS: CEFTRIAXONE SODIUM 1,000 MG in NORMAL SALINE 100 ML IV SCH (17:18)
[2017-07-30] MEDS: AZITHROMYCIN 500 MG in DEXTROSE 5%-WATER 250 ML IV SCH (18:03)
[2017-07-30] MEDS: ALPRAZOLAM 0.25 MG TABLET PO PRN (19:41)
[2017-07-30] MEDS: MAG HYDROX/AL HYDROX/SIMETH SUSP 30 ML UDCUP PO PRN (22:37)
[2017-07-30] MEDS: GUAIFENESIN 600 MG TABLET.SA PO SCH (23:25)
[2017-07-31] MEDS: METHYLPREDNISOLONE INJ 40 MG/1 ML SDV IV SCH ×2 (01:57→11:18)
[2017-07-31] MEDS: LEVALBUTEROL HCL NEB 1.25 MG/3 ML AMPUL NEB SCH ×6 (04:20→23:58)
[2017-07-31] MEDS: IPRATROPIUM BROMIDE 0.02% NEB 0.5 MG/2.5 ML AMPUL NEB SCH ×6 (04:20→23:58)
[2017-07-31] MEDS: FUROSEMIDE INJ/PF 40 MG/4 ML SDV IV SCH (06:59)
[2017-07-31] MEDS: CARVEDILOL 6.25 MG TABLET PO SCH ×2 (11:18→21:06)
[2017-07-31] MEDS: DOCUSATE SODIUM 100 MG CAPSULE PO SCH (11:19)
[2017-07-31] MEDS: APIXABAN 5 MG TABLET PO SCH ×2 (11:19→21:06)
[2017-07-31] MEDS: POTASSIUM CHLORIDE 10 MEQ TABLET.SA PO SCH (11:19)
[2017-07-31] MEDS: GUAIFENESIN 600 MG TABLET.SA PO SCH ×2 (11:19→21:06)
[2017-07-31] MEDS: FLUTICASONE NASAL SPRAY 50 MCG/SPRY 120 SPRAY/16 GM NASL SCH ×2 (11:20→21:06)
--- NOTE | 2017-07-31 16:09 | PROGRESS NOTE E ---
Progress Note NAME: NYLA ALMEIDA : 1935 AGE: 82Y DATE: 07/31/2017 ROOM: 531 SUBJECTIVE: The patient is a pleasant 83-year-old female who had a past medical history of COPD, congestive heart failure, ejection fraction 30%. The patient was admitted with COPD exacerbation, congestive heart failure exacerbation. Started on Lasix 40 mg IV every 8 hours, as well as antibiotics, nebulizer and Solu-Medrol. She is doing better today. She desats when she walks, so was at minimum activity. The patient is not on any home oxygen. OBJECTIVE: Patient lying in bed, comfortable, not in distress. Temperature is afebrile. Heart rate is 70, saturation is 90% to 95% at rest. HEENT: Normocephalic, atraumatic. Pupils round, reactive to light and accommodation bilaterally. Extraocular movements intact. Neck supple. No JVD, no thyromegaly, no lymphadenopathy. Ears: Tympanic membranes intact bilaterally. No discharge from the ears. No discharge from the nose. Cardiovascular: Normal S1, S2. Irregular rate and rhythm. No murmur, no gallop. Respiratory: Lungs have bilateral crackles. No wheeze. Abdomen soft, nontender. Musculoskeletal: No edema. Neurological exam: Awake, alert. Skin: No rash. LABORATORY DATA: White blood count 5.8, hemoglobin 12.8, hematocrit 38. Creatinine 0.9, BUN 11. ASSESSMENT: 1. ACUTE HYPOXIC RESPIRATORY FAILURE, SECONDARY TO COPD AND CONGESTIVE HEART FAILURE. 2. ACUTE ON CHRONIC SYSTOLIC HEART FAILURE. EF of 45. Improved on Lasix 40 mg every 8 hours. 3. PNEUMONIA VERSUS BRONCHITIS. On antibiotics, Zosyn. 4. ATRIAL FIBRILLATION, RATE CONTROLLED. 5. DIABETES. On sliding scale. PLAN: Overall, the patient is improving. I will change her Lasix to 80 mg p.o. twice a day. Discontinue cefepime and will start her on Levaquin 250 mg p.o. daily. Ambulate the patient and check her oxygen. She may need home oxygen. DISCHARGE PLAN: case planner consult for possible home health tomorrow. DISPOSITION: Probably discharge her home tomorrow. DICTATING PHYSICIAN: PATRICIO ARRIOLA M.D. [id number] PHY#: [id number] ID: [id number] JOB#: [id number] ACCT: [id number] cc: > RYANND
[2017-07-31] MEDS: PREDNISONE 20 MG TABLET PO SCH (16:16)
[2017-07-31] MEDS: MAG HYDROX/AL HYDROX/SIMETH SUSP 30 ML UDCUP PO PRN (16:16)
[2017-07-31] MEDS: FUROSEMIDE 80 MG TABLET PO SCH (19:21)
[2017-07-31] MEDS: ALPRAZOLAM 0.25 MG TABLET PO PRN (21:06)
[2017-08-01] MEDS: LEVALBUTEROL HCL NEB 1.25 MG/3 ML AMPUL NEB SCH ×5 (03:31→20:03)
[2017-08-01] MEDS: IPRATROPIUM BROMIDE 0.02% NEB 0.5 MG/2.5 ML AMPUL NEB SCH ×5 (03:31→20:03)
[2017-08-01 07:18] LABS: ABSOLUTE MONOCYTES (AUTO) 0.5 10^3/uL (0.1-1.4); ABSOLUTE NEUT (AUTO) 8.7 10^3/uL (1.7-8.2); BASOPHILS % (AUTO) 0.1 % (0-2); HEMATOCRIT 41.4 % (36.0-47.0); HEMOGLOBIN 13.9 g/dL (12.0-15.5); LYMPHOCYTES % (AUTO) 10.2 % (13-45); MEAN CORPUSCULAR HEMOGLOBIN 30.2 pg (27.0-33.4); MEAN CORPUSCULAR HGB CONC 33.7 g/dL (32.0-36.0); MEAN CORPUSCULAR VOLUME 90 fl (80-97); MONOCYTES % (AUTO) 4.8 % (3-13); PLATELET COUNT 195 10^3/uL (150-450); RED BLOOD COUNT 4.61 10^6/uL (3.72-5.28); RED CELL DISTRIBUTION WIDTH 14.9 % (11.5-14.0); SEGMENTED NEUTROPHILS % (AUTO) 84.9 % (42-78); TOTAL CELLS COUNTED % (AUTO) 100 %; WHITE BLOOD COUNT 10.2 10^3/uL (4.0-10.5)
[2017-08-01 07:49] LABS: ALBUMIN 3.5 g/dL (3.5-5.0); ANION GAP 9 (5-19); BLOOD UREA NITROGEN 35 mg/dL (7-20); CALCIUM 8.6 mg/dL (8.4-10.2); CARBON DIOXIDE 34 mmol/L (22-30); CHLORIDE 99 mmol/L (98-107); GLUCOSE 135 mg/dL (75-110); POTASSIUM 4.1 mmol/L (3.6-5.0); SODIUM 142.2 mmol/L (137-145)
[2017-08-01] MEDS: CARVEDILOL 6.25 MG TABLET PO SCH ×2 (10:03→22:16)
[2017-08-01] MEDS: FUROSEMIDE 80 MG TABLET PO SCH ×2 (10:03→17:46)
[2017-08-01] MEDS: GUAIFENESIN 600 MG TABLET.SA PO SCH ×2 (10:03→22:15)
[2017-08-01] MEDS: PREDNISONE 20 MG TABLET PO SCH (10:03)
[2017-08-01] MEDS: FLUTICASONE NASAL SPRAY 50 MCG/SPRY 120 SPRAY/16 GM NASL SCH ×2 (10:03→22:16)
[2017-08-01] MEDS: POTASSIUM CHLORIDE 10 MEQ TABLET.SA PO SCH (10:03)
[2017-08-01] MEDS: DOCUSATE SODIUM 100 MG CAPSULE PO SCH (10:03)
[2017-08-01] MEDS: APIXABAN 5 MG TABLET PO SCH ×2 (10:03→22:15)
[2017-08-01] MEDS: LEVOFLOXACIN 750 MG TABLET PO SCH (10:03)
[2017-08-01] MEDS ORDERED: LEVALBUTEROL HCL NEB 0.63 MG/3 ML AMPUL NEB PRN (18:16)
--- NOTE | 2017-08-01 18:32 | PDOC PROGRESS REPORT ---
Subjective Progress Note for:: 08/01/17 Subjective:: NYLA ALMEIDA is a 82 year old female admitted for COPD and CHF exacerbation. Patient has a past medical history of COPD, CHF with LVEF of 30%. Patient seen this morning on rounds, she was sitting in the bedside recliner. The patient states that she is relatively comfortable on room, however she intermittently feels short of breath. She states that yesterday she was able to ambulate a few steps outside of the room while on supplemental oxygen. This morning, wheezing can be auscultated in all lung bedoya. The patiently is currently taking prednisone, duo nebs, p.o. Levaquin, and Lasix. Reason For Visit: HEART FAILURE, PNA Physical Exam Vital Signs: Temp Pulse Resp BP Pulse Ox 98.2 F 80 16 127/54 H 94 08/01/17 15:58 08/01/17 16:00 08/01/17 16:00 08/01/17 15:58 08/01/17 16:00 Intake & Output 07/31/17 08/01/17 08/02/17 06:59 06:59 06:59 Intake Total 1320 1236 5 Output Total 1000 Balance 320 1236 5 Weight 109.4 kg 109.3 kg General appearance: PRESENT: no acute distress Head exam: PRESENT: atraumatic Eye exam: PRESENT: conjunctiva pink Mouth exam: PRESENT: moist Neck exam: PRESENT: full ROM Respiratory exam: PRESENT: wheezes - Wheezing auscultated in all lung bedoya Cardiovascular exam: PRESENT: +S1, +S2 Pulses: PRESENT: normal radial pulses, +1 pedal pulses bilateral Vascular exam: PRESENT: normal capillary refill GI/Abdominal exam: PRESENT: normal bowel sounds, soft Rectal exam: PRESENT: deferred Extremities exam: PRESENT: full ROM, pedal edema Musculoskeletal exam: PRESENT: ambulatory Neurological exam: PRESENT: alert, awake, oriented to person, oriented to place , oriented to time, oriented to situation Psychiatric exam: PRESENT: anxious Skin exam: PRESENT: normal color Results Laboratory Results: 08/01/17 06:22 08/01/17 06:22 08/01/17 08/01/17 06:22 06:22 WBC 10.2 RBC 4.61 Hgb 13.9 Hct 41.4 MCV 90 MCH 30.2 MCHC 33.7 RDW 14.9 H Plt Count 195 Seg Neutrophils % 84.9 H Lymphocytes % 10.2 L Monocytes % 4.8 Eosinophils % 0.0 Basophils % 0.1 Absolute Neutrophils 8.7 H Absolute Lymphocytes 1.0 Absolute Monocytes 0.5 Absolute Eosinophils 0.0 Absolute Basophils 0.0 Sodium 142.2 Potassium 4.1 Chloride 99 Carbon Dioxide 34 H Anion Gap 9 BUN 35 H Creatinine 0.87 Est GFR ( Amer) > 60 Est GFR (Non-Af Amer) > 60 Glucose 135 H Calcium 8.6 Phosphorus 4.0 Albumin 3.5 07/28/17 07/28/17 07/29/17 23:49 23:49 05:47 Creatine Kinase 742 H 638 H CK-MB (CK-2) 9.52 H Troponin I 0.045 07/29/17 07/29/17 07/29/17 05:47 09:42 11:53 Creatine Kinase 535 H CK-MB (CK-2) 9.17 H Troponin I 0.064 0.052 07/29/17 07/30/17 11:53 06:10 Creatine Kinase 279 H CK-MB (CK-2) 7.24 H Troponin I 0.053 Impressions: Chest X-Ray 07/28/17 19:16 IMPRESSION: CARDIAC ENLARGEMENT. VASCULAR CONGESTION WITH PATCHY MULTIFOCAL AIRSPACE DISEASE COULD REPRESENT ASYMMETRIC PULMONARY EDEMA OR SUPERIMPOSED PNEUMONIA. Assessment & Plan - Diagnosis (1) Acute exacerbation of congestive heart failure Is this a current diagnosis for this admission?: Yes Plan: Patient has past medical history of congestive heart failure with an LVEF of 30% . Continue home therapy of Lasix, Coreg, losartan Blood pressure has been relatively NORMOtensive Patient denies any complaints of chest pain. Monitor daily weights. Patient will need to follow up with cardiology following discharge (2) COPD exacerbation Is this a current diagnosis for this admission?: Yes Plan: Patient has a history of COPD, does not require home oxygen. Wheezing auscultated in all lung bedoya this morning. Increased steroid dose from prednisone 40 mg daily to Solu-Medrol 40 mg every 6 hours Continue scheduled duo nebs, continue PRN Duoneb, initiate PRN Xopenex Patient appears comfortable on room air. Attempt to ambulate in hallway while monitoring pulse oximetry Continue p.o. Levaquin for PNA vs. bronchitis, if patient remains afebrile and nontoxic-appearing, consider discontinuing antibiotic therapy (3) Diabetes Qualifiers: Diabetes mellitus type: type 2 Is this a current diagnosis for this admission?: Yes Plan: Continue sliding scale insulin (4) Pneumonia Is this a current diagnosis for this admission?: Yes Plan: PNA vs. broncitis. Patient denies productive cough, she remains afebrile. Prophylactically treated with cefepime and Zosyn for suspected pneumonia. Transitioned yesterday to p.o. Levaquin. If patient remains afebrile and non-toxic appearing, consider discontinuing antibiotics - Time Time Spent with patient: 15-24 minutes Anticipated discharge: Home Within: within 48 hours - Inpatient Certification Based on my medical assessment, after consideration of the patient's comorbidities, presenting symptoms, or acuity I expect that the services needed warrant INPATIENT care.: Yes I certify that my determination is in accordance with my understanding of Medicare's requirements for reasonable and necessary INPATIENT services [42 CFR 412.3e].: Yes Medical Necessity: Risk of Complication if Not Cared For in Hospital - Plan Summary Plan Summary: Ultimately, the plan is to discharge the patient home within 48 hours
[2017-08-01] MEDS: METHYLPREDNISOLONE INJ 40 MG/1 ML SDV IV SCH (18:46)
[2017-08-01] MEDS: ALPRAZOLAM 0.25 MG TABLET PO PRN (22:16)
[2017-08-01] MEDS: MAG HYDROX/AL HYDROX/SIMETH SUSP 30 ML UDCUP PO PRN (23:35)
[2017-08-02] MEDS: IPRATROPIUM BROMIDE 0.02% NEB 0.5 MG/2.5 ML AMPUL NEB SCH ×4 (04:37→11:27)
[2017-08-02] MEDS: LEVALBUTEROL HCL NEB 1.25 MG/3 ML AMPUL NEB SCH ×4 (04:37→11:27)
[2017-08-02] MEDS: METHYLPREDNISOLONE INJ 40 MG/1 ML SDV IV SCH ×2 (04:56→09:23)
[2017-08-02] MEDS: APIXABAN 5 MG TABLET PO SCH (09:19)
[2017-08-02] MEDS: CARVEDILOL 6.25 MG TABLET PO SCH (09:22)
[2017-08-02] MEDS: POTASSIUM CHLORIDE 10 MEQ TABLET.SA PO SCH (09:23)
[2017-08-02] MEDS: LEVOFLOXACIN 750 MG TABLET PO SCH (09:23)
[2017-08-02] MEDS: DOCUSATE SODIUM 100 MG CAPSULE PO SCH (09:23)
[2017-08-02] MEDS: FLUTICASONE NASAL SPRAY 50 MCG/SPRY 120 SPRAY/16 GM NASL SCH (09:23)
[2017-08-02] MEDS: FUROSEMIDE 80 MG TABLET PO SCH (09:23)
[2017-08-02] MEDS: GUAIFENESIN 600 MG TABLET.SA PO SCH (09:23)
[2017-08-02] MEDS ORDERED: LOSARTAN POTASSIUM 50 MG TABLET PO SCH (10:00)
[2017-08-02] MEDS: INSULIN LISPRO 100 UNIT/ML 3 ML VIAL SUBCUT PRN (11:38)
[2017-08-02 14:52] VITALS: BP 97/47
--- NOTE | 2017-08-12 12:44 | PDOC DISCHARGE SUMMARY ---
General - Admit/Disc Date/PCP Admission Date/Primary Care Provider: 07/28/17 21:07 Discharge Date: 08/02/17 - Discharge Diagnosis (1) Acute exacerbation of congestive heart failure Is this a current diagnosis for this admission?: Yes Summary: Patient has past medical history of congestive heart failure with an LVEF of 30% . Continued on home therapy of Lasix, Coreg, losartan Blood pressure well controlled/ NORMOtensive Patient denied any complaints of chest pain. Patient instructed to follow up with cardiology post discharge, she states understanding (2) COPD exacerbation Is this a current diagnosis for this admission?: Yes Summary: Patient has a history of COPD, does not require home oxygen. Wheezing initially treated with IV Solu-Medrol 40 mg every 6 hours, transitioned to PO prednisone Additionally, treated with scheduled duo nebs, PRN Duoneb, and PRN Xopenex Patient appears comfortable on room air. Attempt to ambulate in hallway while monitoring pulse oximetry Treated with p.o. Levaquin for PNA vs. bronchitis, discharged home with prescription for levaquin to complete antibiotic therapy (3) Diabetes Is this a current diagnosis for this admission?: Yes Summary: Treated with sliding scale insulin (4) Pneumonia Is this a current diagnosis for this admission?: Yes Summary: PNA vs. broncitis. Patient denies productive cough, she remains afebrile. Prophylactically treated with cefepime and Zosyn for suspected pneumonia. Transitioned to p.o. Levaquin. Discharged home with PO levaquin to complete antibiotic therapy - Additional Information Resuscitation Status: Full Code Discharge Diet: Cardiac, Diabetic Discharge Activity: Activity As Tolerated, Weigh Daily Prescriptions: Benzonatate [Tessalon Perles 100 mg Capsule] 100 mg PO Q8HP PRN #40 capsule PRN Reason: Ipratropium [place] [Atrovent 0.02% Neb 0.5 mg/2.5 ml Ampul] 0.5 mg NEB RTQ4 #1 vial.neb Levofloxacin [Levaquin 750 mg Tablet] 750 mg PO DAILY #2 tablet Home Medications: Albuterol Sulfate [Albuterol Sulfate 2.5mg/3 mL] 2.5 mg NEB Q6 07/28/17 Alprazolam [Xanax 0.25 mg Tablet] 0.25 mg PO Q12HP PRN 07/28/17 Apixaban [Eliquis] 5 mg PO Q12 07/28/17 Carvedilol [Coreg 6.25 mg Tablet] 6.25 mg PO Q12 07/28/17 Fluticasone/Salmeterol [Advair 250-50 Diskus 14 Dose/Diskus] 1 puff IH Q12 07/28 Furosemide [Lasix 40 mg Tablet] 40 mg PO BID 07/28/17 Losartan Potassium [Cozaar 100 mg Tablet] 100 mg PO DAILY 07/28/17 Metformin HCl [Metformin HCl ER] 500 mg PO QHS 07/28/17 Umeclidinium [place] [Incruse Ellipta] 1 puff IH DAILY 07/28/17 Benzonatate [Tessalon Perles 100 mg Capsule] 100 mg PO Q8HP PRN #40 capsule Ipratropium [place] [Atrovent 0.02% Neb 0.5 mg/2.5 ml Ampul] 0.5 mg NEB RTQ4 #1 vial.neb 08/02/17 Levofloxacin [Levaquin 750 mg Tablet] 750 mg PO DAILY #2 tablet 08/02/17 History of Present Illness Patient complains of: cough and shortness of breath History of Present Illness: NYLA ALMEIDA is a 82 year old female with a past medical history of congestive heart failure, obstructive sleep apnea, status post pacemaker placement, COPD, coronary artery disease, dyslipidemia, diabetes and obesity. She presents with 1 week of subjective fever with productive cough of blood- tinged yellow sputum, rhinorrhea, hoarse voice and orthopnea. In the emergency room she is found to have hypoxia, lower extremity edema, BNP of 2700 and a chest x-ray with multilobar pneumonia versus atypical pulmonary edema. She started on empiric antibiotics, Lasix and referred to the hospitalist for admission. Patient denies chest pain nausea vomiting diaphoresis. Patient further denies recent antibiotics or change in medications. Hospital Course Hospital Course: as above Physical Exam Vital Signs: Temp Pulse Resp BP Pulse Ox 97.4 F 70 20 118/75 91 L 08/02/17 13:10 08/02/17 13:10 08/02/17 13:10 08/02/17 13:10 08/02/17 13:10 General appearance: PRESENT: no acute distress, well-developed, well-nourished Head exam: PRESENT: atraumatic, normocephalic Eye exam: PRESENT: conjunctiva pink, EOMI, PERRLA. ABSENT: scleral icterus Ear exam: PRESENT: normal external ear exam Mouth exam: PRESENT: moist, tongue midline Neck exam: ABSENT: carotid bruit, JVD, lymphadenopathy, thyromegaly Respiratory exam: PRESENT: clear to auscultation venkat, other - nonproductive cough. ABSENT: rales, rhonchi, wheezes Cardiovascular exam: PRESENT: RRR. ABSENT: diastolic murmur, rubs, systolic murmur Pulses: PRESENT: normal dorsalis pedis pul Vascular exam: PRESENT: normal capillary refill GI/Abdominal exam: PRESENT: normal bowel sounds, soft. ABSENT: distended, guarding, mass, organolmegaly, rebound, tenderness Rectal exam: PRESENT: deferred Extremities exam: PRESENT: full ROM, pedal edema. ABSENT: calf tenderness, clubbing Neurological exam: PRESENT: alert, awake, oriented to person, oriented to place , oriented to time, oriented to situation, CN II-XII grossly intact. ABSENT: motor sensory deficit Psychiatric exam: PRESENT: appropriate affect, normal mood. ABSENT: homicidal ideation, suicidal ideation Skin exam: PRESENT: dry, intact, warm. ABSENT: cyanosis, rash Results Laboratory Results: 08/01/17 06:22 08/01/17 06:22 07/28/17 07/28/17 07/29/17 23:49 23:49 05:47 Creatine Kinase 742 H 638 H CK-MB (CK-2) 9.52 H Troponin I 0.045 07/29/17 07/29/17 07/29/17 05:47 09:42 11:53 Creatine Kinase 535 H CK-MB (CK-2) 9.17 H Troponin I 0.064 0.052 07/29/17 07/30/17 11:53 06:10 Creatine Kinase 279 H CK-MB (CK-2) 7.24 H Troponin I 0.053 Impressions: Chest X-Ray 07/28/17 19:16 IMPRESSION: CARDIAC ENLARGEMENT. VASCULAR CONGESTION WITH PATCHY MULTIFOCAL AIRSPACE DISEASE COULD REPRESENT ASYMMETRIC PULMONARY EDEMA OR SUPERIMPOSED PNEUMONIA. Qualifiers - * PATEINT BEING DISCHARGED WITH ANY OF THE FOLLOWING DIAGNOSIS?: No Plan Discharge Plan: Discharge home with tessalon pearls for cough, levaquin for PNA, and albuterol inhaler for SOB Time Spent: Less than 30 Minutes
== END 2017-08-02 15:30 | disposition home or self-care (01) | DRG 291 ==
LOC: ER 18:26 → EH 21:07 → 5 07-29 00:21
PROVIDERS: ADMIT Internal Medicine; ATTEND Internal Medicine
DX: I11.0 Hypertensive heart disease with heart failure (principal); J18.9 Pneumonia, unspecified organism; M62.82 Rhabdomyolysis; J44.0 Chronic obstructive pulmonary disease with (acute) lower respiratory infection; E86.0 Dehydration; J44.1 Chronic obstructive pulmonary disease with (acute) exacerbation; I48.91 Unspecified atrial fibrillation; E11.9 Type 2 diabetes mellitus without complications; R09.02 Hypoxemia; I50.23 Acute on chronic systolic (congestive) heart failure; G47.33 Obstructive sleep apnea (adult) (pediatric); I25.10 Atherosclerotic heart disease of native coronary artery without angina pectoris; J40 Bronchitis, not specified as acute or chronic; Z95.0 Presence of cardiac pacemaker; E78.5 Hyperlipidemia, unspecified; E66.9 Obesity, unspecified; J34.89 Other specified disorders of nose and nasal sinuses; M19.90 Unspecified osteoarthritis, unspecified site; Z90.710 Acquired absence of both cervix and uterus; Z82.49 Family history of ischemic heart disease and other diseases of the circulatory system; Z88.8 Allergy status to other drugs, medicaments and biological substances; Z79.4 Long term (current) use of insulin; Z79.02 Long term (current) use of antithrombotics/antiplatelets
CPT/HCPCS: 36415; 71046; 80048; 80053; 80061; 80069; 81001; 82550; 82553; 82803; 82962; 83605; 83735; 83880; 84443; 84484; 85025; 85027; 85610; 93005; 93010; 93306; 94640; 94667; 94668; 96361; 96374; 99285; J0456; J0696; J1940; J2920; J3490; J7030; J7060; J7512

== ENCOUNTER → 2017-11-07 | Outpatient (CLI) | payer MEDICARE, BC ==
[2017-11-07 10:23] LABS: ABSOLUTE EOSINOPHILS # (AUTO) 0.1 10^3/uL (0.0-0.6); ABSOLUTE MONOCYTES (AUTO) 0.4 10^3/uL (0.1-1.4); ABSOLUTE NEUT (AUTO) 3.6 10^3/uL (1.7-8.2); BASOPHILS % (AUTO) 0.7 % (0-2); EOSINOPHILS % (AUTO) 1.6 % (0-6); HEMATOCRIT 38.2 % (36.0-47.0); LYMPHOCYTES % (AUTO) 19.7 % (13-45); MEAN CORPUSCULAR HEMOGLOBIN 30.8 pg (27.0-33.4); MEAN CORPUSCULAR HGB CONC 33.9 g/dL (32.0-36.0); MEAN CORPUSCULAR VOLUME 91 fl (80-97); MONOCYTES % (AUTO) 8.6 % (3-13); PLATELET COUNT 139 10^3/uL (150-450); RED CELL DISTRIBUTION WIDTH 14.8 % (11.5-14.0); SEGMENTED NEUTROPHILS % (AUTO) 69.4 % (42-78); TOTAL CELLS COUNTED % (AUTO) 100 %; WHITE BLOOD COUNT 5.3 10^3/uL (4.0-10.5)
[2017-11-07 10:49] LABS: ALANINE AMINOTRANSFERASE 29 U/L (9-52); ALKALINE PHOSPHATASE 78 U/L (38-126); ANION GAP 9 (5-19); ASPARTATE AMINO TRANSFERASE 28 U/L (14-36); BILIRUBIN,DIRECT 0.3 mg/dL (0.0-0.4); BLOOD UREA NITROGEN 23 mg/dL (7-20); CALCIUM 9.3 mg/dL (8.4-10.2); CARBON DIOXIDE 32 mmol/L (22-30); CHLORIDE 104 mmol/L (98-107); CHOLESTEROL 128.71 mg/dL (0-200); GLUCOSE 102 mg/dL (75-110); SODIUM 145.1 mmol/L (137-145); TOTAL PROTEIN 6.4 g/dL (6.3-8.2); TRIGLYCERIDES 62 mg/dL (<150)
[2017-11-07 11:00] LABS: DIRECT LDL 49 mg/dL (<100)
== END ==
LOC: OD 09:26
PROVIDERS: ATTEND Internal Medicine
DX: I25.10 Atherosclerotic heart disease of native coronary artery without angina pectoris (principal); E11.9 Type 2 diabetes mellitus without complications; I48.0 Paroxysmal atrial fibrillation; R53.83 Other fatigue; G47.33 Obstructive sleep apnea (adult) (pediatric)
CPT/HCPCS: 36415; 80053; 80061; 83036; 83735; 84443; 85025

== ENCOUNTER → 2018-06-21 | Outpatient (CLI) | payer MEDICARE, BC ==
[2018-06-21 10:31] LABS: ABSOLUTE EOSINOPHILS # (AUTO) 0.1 10^3/uL (0.0-0.6); ABSOLUTE MONOCYTES (AUTO) 0.4 10^3/uL (0.1-1.4); ABSOLUTE NEUT (AUTO) 2.6 10^3/uL (1.7-8.2); BASOPHILS % (AUTO) 0.8 % (0-2); EOSINOPHILS % (AUTO) 1.3 % (0-6); HEMATOCRIT 36.9 % (36.0-47.0); HEMOGLOBIN 12.7 g/dL (12.0-15.5); LYMPHOCYTES % (AUTO) 24.4 % (13-45); MEAN CORPUSCULAR HEMOGLOBIN 31.1 pg (27.0-33.4); MEAN CORPUSCULAR HGB CONC 34.2 g/dL (32.0-36.0); MEAN CORPUSCULAR VOLUME 91 fl (80-97); MONOCYTES % (AUTO) 9.7 % (3-13); PLATELET COUNT 147 10^3/uL (150-450); RED BLOOD COUNT 4.07 10^6/uL (3.72-5.28); RED CELL DISTRIBUTION WIDTH 14.8 % (11.5-14.0); SEGMENTED NEUTROPHILS % (AUTO) 63.8 % (42-78); TOTAL CELLS COUNTED % (AUTO) 100 %; WHITE BLOOD COUNT 4.1 10^3/uL (4.0-10.5)
[2018-06-21 10:59] LABS: ALANINE AMINOTRANSFERASE 30 U/L (9-52); ALBUMIN 4.2 g/dL (3.5-5.0); ALKALINE PHOSPHATASE 88 U/L (38-126); ANION GAP 11 (5-19); ASPARTATE AMINO TRANSFERASE 31 U/L (14-36); BILIRUBIN,DIRECT 0.2 mg/dL (0.0-0.4); BILIRUBIN,TOTAL 0.8 mg/dL (0.2-1.3); BLOOD UREA NITROGEN 24 mg/dL (7-20); CARBON DIOXIDE 29 mmol/L (22-30); CHLORIDE 103 mmol/L (98-107); CHOLESTEROL 157.03 mg/dL (0-200); GLUCOSE 103 mg/dL (75-110); POTASSIUM 4.1 mmol/L (3.6-5.0); SODIUM 143.2 mmol/L (137-145); TOTAL PROTEIN 6.5 g/dL (6.3-8.2); TRIGLYCERIDES 60 mg/dL (<150)
[2018-06-21 11:10] LABS: DIRECT LDL 79 mg/dL (<100)
== END ==
LOC: OD 09:11
PROVIDERS: ATTEND Internal Medicine
DX: I10 Essential (primary) hypertension (principal); R73.9 Hyperglycemia, unspecified; R53.83 Other fatigue; E78.5 Hyperlipidemia, unspecified; J44.9 Chronic obstructive pulmonary disease, unspecified
CPT/HCPCS: 36415; 80053; 80061; 83036; 84443; 85025